=== PATIENT | male | born 1940 | race Caucasian/White ===

== ENCOUNTER 2023-11-04 15:41 | Emergency (ER) | payer MEDICARE, OTHER ==
[~2023-11-04] VITALS: Ht 180.3 cm; Wt 90.7 kg
[~2023-11-04 15:41] MED LIST: ANAPROX DS550 MG PO; ULTRAM 50MG50 MG PO
[2023-11-04 16:14] VITALS: PULSE 58; RESP 16; TEMP 98.5; O2SAT 99
[2023-11-04] MEDS: TETANUS/DIPHTHERIA TOX ADULT 0.5 ML SYR IM ONE (16:27)
[2023-11-04] MEDS ORDERED: CEPHALEXIN500 MG PO (16:37)
== END 2023-11-04 16:56 | disposition home or self-care (01) ==
LOC: ER 15:47
DX: S81.811A Laceration without foreign body, right lower leg, initial encounter (principal); W20.8XXA Other cause of strike by thrown, projected or falling object, initial encounter; Y92.89 Other specified places as the place of occurrence of the external cause; I10 Essential (primary) hypertension; E11.9 Type 2 diabetes mellitus without complications; F41.9 Anxiety disorder, unspecified; F32.A Depression, unspecified; Z95.5 Presence of coronary angioplasty implant and graft
CPT/HCPCS: 90471; 90714; 99283